=== PATIENT | female | born 1945 | race Caucasian/White ===

== ENCOUNTER 2021-02-25 10:47 | Outpatient (CLI) | payer MEDICARE, SELFPAY ==
--- NOTE | 2021-02-25 10:54 | MM_ITS ---
WS: [id number] BILATERAL DIGITAL SCREENING MAMMOGRAPHY WITH CAD CLINICAL INFORMATION: SCREENING HISTORY: Screening mammogram. No current complaints. COMPARISON: April 12, 2019 TECHNIQUE: Bilateral CC and MLO views. FINDINGS: The breasts are composed of heterogeneous fibroglandular density tissue, which can limit the detectio n of small underlying mass lesions. No suspicious mass, asymmetry, calcifications, or architectural d istortion. No evidence of malignancy. Punctate and vascular calcifications. MM/[place] [id number] IMPRESSION: BI-RADS: 2-Benign FOLLOW UP: 1 Year Follow-up Recommend return to annual screening mammography.
== END 2021-02-25 10:48 | disposition home or self-care (01) ==
LOC: RADSHAW 10:51
PROVIDERS: PCP Physician Assistant Medical; Visit Provider Nurse Practitioner Family
DX: Z12.31 Encounter for screening mammogram for malignant neoplasm of breast (principal)
CPT/HCPCS: 77067

== ENCOUNTER → 2023-05-19 09:41 | Outpatient (BNVA) | payer MEDICARE, SELFPAY | PROVIDERS: PCP Registered Nurse; Visit Provider Registered Nurse | DX: N39.0 Urinary tract infection, site not specified (principal) | CPT/HCPCS: 81000; 87077; 87086; 87184 ==

== ENCOUNTER → 2023-05-29 10:39 | Outpatient (BNVA) | payer MEDICARE, SELFPAY | PROVIDERS: PCP Registered Nurse; Visit Provider Registered Nurse | DX: N39.0 Urinary tract infection, site not specified (principal) | CPT/HCPCS: 81003; 87086 ==

== ENCOUNTER → 2023-06-17 15:08 | Outpatient (BNVA) | payer MEDICARE, SELFPAY | PROVIDERS: PCP Registered Nurse; Visit Provider Nurse Practitioner Family | DX: L57.0 Actinic keratosis (principal); L57.8 Other skin changes due to chronic exposure to nonionizing radiation; L81.4 Other melanin hyperpigmentation; D22.5 Melanocytic nevi of trunk; L85.3 Xerosis cutis; L82.1 Other seborrheic keratosis; Z85.828 Personal history of other malignant neoplasm of skin | CPT/HCPCS: 17004; 99213 ==

== ENCOUNTER → 2023-08-17 13:07 | Outpatient (BNVA) | payer MEDICARE, SELFPAY | PROVIDERS: PCP Registered Nurse; Visit Provider Dermatology | DX: D18.01 Hemangioma of skin and subcutaneous tissue (principal); L57.8 Other skin changes due to chronic exposure to nonionizing radiation; L82.1 Other seborrheic keratosis; L57.0 Actinic keratosis | CPT/HCPCS: 17000; 99213 ==

== ENCOUNTER → 2023-12-31 11:38 | Outpatient (BNVA) | payer MEDICARE, SELFPAY | PROVIDERS: PCP Registered Nurse; Visit Provider Registered Nurse | DX: J32.9 Chronic sinusitis, unspecified (principal) | CPT/HCPCS: 87400; 87426 ==

== ENCOUNTER 2024-02-01 11:02 | Outpatient (CLI) | payer MEDICARE, SELFPAY ==
--- NOTE | 2024-02-01 11:12 | XRR_ITS ---
PROCEDURE INFORMATION: Exam: XR Chest Exam date and time: 02/01/2024 11:25 AM Age: 78 years old Clinical indication: Patient HX: Cough/congestion x 2 weeks. Chest tightness. Took antibiotics and still is not better; Additional info: J18.9 - pneumonia, unspecified organism TECHNIQUE: Imaging protocol: Radiologic exam of the chest. Views: 2 views. COMPARISON: CT chest con [id number] 03/02/2018 10:10 AM FINDINGS: Lungs: Unremarkable. No consolidation. Pleural spaces: Unremarkable. No pleural effusion. No pneumothorax. Heart/Mediastinum: Unremarkable. No cardiomegaly. Bones/joints: A metallic pin is present in the left humeral head. XR/XR chest 2V* [id number] IMPRESSION: No acute findings. Metallic pin left humeral head.
[2024-02-01 14:00] LABS: Adenovirus Not Detected (NOT DETECT); Chlamydia Pneumoniae Not Detected (NOT DETECT); Coronavirus 229E,HKU1,NL63,OC4 Not Detected (NOT DETECT); Human Metapneumovirus Not Detected (NOT DETECT); Human Rhinovirus/Enterovirus Detected (NOT DETECT); Influenza A Not Detected (NOT DETECT); Influenza A H1 Not Detected (NOT DETECT); Influenza A H1-2009 Not Detected (NOT DETECT); Influenza A H3 Not Detected (NOT DETECT); Influenza B Not Detected (NOT DETECT); Mycoplasma Pneumoniae Not Detected (NOT DETECT); Parainfluenza Virus Type 1 Not Detected (NOT DETECT); Parainfluenza Virus Type 2 Not Detected (NOT DETECT); Parainfluenza Virus Type 3 Not Detected (NOT DETECT); Parainfluenza Virus Type 4 Not Detected (NOT DETECT); Respiratory Syncytial Virus A Not Detected (NOT DETECT); Respiratory Syncytial Virus B Not Detected (NOT DETECT); SARS-COV-2 Not Detected (NOT DETECT)
== END 2024-02-01 11:03 | disposition home or self-care (01) ==
LOC: RAD 11:04
PROVIDERS: PCP Registered Nurse; Visit Provider Registered Nurse
DX: J18.9 Pneumonia, unspecified organism (principal)
CPT/HCPCS: 71046; 80053; 85025; 87400; 87426; 87486; 87581; 87633

== ENCOUNTER → 2024-02-08 13:30 | Outpatient (BNVA) | payer MEDICARE, SELFPAY | PROVIDERS: PCP Registered Nurse; Visit Provider Nurse Practitioner Family | DX: L57.0 Actinic keratosis (principal); D18.01 Hemangioma of skin and subcutaneous tissue; L57.8 Other skin changes due to chronic exposure to nonionizing radiation; L82.1 Other seborrheic keratosis; R59.0 Localized enlarged lymph nodes; Z85.828 Personal history of other malignant neoplasm of skin; Z85.820 Personal history of malignant melanoma of skin | CPT/HCPCS: 17000; 99213 ==

== ENCOUNTER 2024-02-11 08:19 | Outpatient (CLI) | payer MEDICARE, SELFPAY ==
--- NOTE | 2024-02-11 08:22 | US_ITS ---
WS: [id number] INDICATION: Lump behind ear TECHNIQUE: Ultrasound area of concern FINDINGS: Ultrasound soft tissue area of concern posterior to the right ear. A few normal-appearing l ymph nodes in this area. No suspicious cystic or solid lesions. No other suspicious findings IMPRESSION: Normal exam
== END 2024-02-11 08:20 | disposition home or self-care (01) ==
LOC: RAD 08:20
PROVIDERS: PCP Registered Nurse; Visit Provider Nurse Practitioner Family
DX: Z08 Encounter for follow-up examination after completed treatment for malignant neoplasm (principal); Z85.820 Personal history of malignant melanoma of skin
CPT/HCPCS: 76536

== ENCOUNTER → 2024-04-25 13:09 | Outpatient (BNVA) | payer MEDICARE, SELFPAY | PROVIDERS: PCP Registered Nurse; Visit Provider Nurse Practitioner Family | DX: D48.5 Neoplasm of uncertain behavior of skin (principal); L57.0 Actinic keratosis; Z85.820 Personal history of malignant melanoma of skin; Z85.828 Personal history of other malignant neoplasm of skin; R59.0 Localized enlarged lymph nodes | CPT/HCPCS: 11102; 17000; 99213 ==

== ENCOUNTER 2024-04-27 16:51 | Outpatient (CLI) | payer MEDICARE, SELFPAY ==
--- NOTE | 2024-04-27 16:59 | CT_ITS ---
WS: [id number] CT NECK WITHOUT CONTRAST HISTORY: SCALP AND RIGHT INFERIOR POSTAURICULAR SKIN TECHNIQUE: Contiguous 2 mm axial images are performed through the neck with intravenous contrast. Sag ittal and coronal reformats are also submitted. All CT scans at [facility] use at least one o f these dose optimization techniques: automated exposure control; mA and/or kV adjustment per patient size (includes targeted exams where dose is matched to clinical indication); or iterative reconstruc tion. CONTRAST: CONTRAST: None DLP: 125.93 mGy.cm COMPARISON: None available. Contrast performed without IV contrast which decreases sensitivity and specificity. Nasopharynx, oropharynx, hypopharynx and larynx are unremarkable. No soft tissue masses. Torus tubarius and fossa of Rosenmuller and parapharyngeal fat are normal. Small bilateral cervical chain lymph nodes are identified. These lymph nodes are subcentimeter in nor mal size. No adenopathy. No necrotic lymph nodes. No adenopathy is identified posterior to the RIGHT ear. Unenhanced imaging of the thyroid, submandibular and parotid glands is negative. Increased soft tissue surrounding the odontoid process with sclerosis. Possible erosions. Correlate f or possible rheumatoid arthritis. Facet joint arthritis bilaterally throughout the cervical spine. Visualized portions of the skull base demonstrate no abnormalities. Orbits and globes are within norm al limits. No soft tissue masses. Visualized paranasal sinuses and mastoid air cells are normal. Lung apices and negative for mass. Benign granulomata. Moderate atherosclerotic plaque in the visuali zed thoracic aortic arch. CT/CT neck wo con [id number] IMPRESSION: 1. Lack of IV contrast limits specificity and sensitivity of this examination. 2. No cervical chain lymphadenopathy or mass identified. 3. No mass posterior to the right ear. 4. Increased soft tissue with sclerosis and mild erosions involving the odonto id. This can be seen with rheumatoid arthritis.
--- NOTE | 2024-04-27 16:59 | CT_ITS ---
WS: [id number] CT HEAD NONCONTRAST HISTORY: SCALP AND RIGHT INFERIOR POSTAURICULAR SKIN TECHNIQUE: Contiguous axial imaging performed through the brain in 3.0 mm imaging. Bone and soft tiss ue windows. Sagittal and coronal reformats reviewed. All CT scans at [facility] use at least one of these dose optimization techniques: automated exposure control; mA and/or kV adjustment per pa tient size (includes targeted exams where dose is matched to clinical indication); or iterative recon struction. DLP: 894.28 mGy.cm COMPARISON: None available. No acute intracranial hemorrhage, midline shift or mass effect. Mild atrophy and small vessel ischemic disease. No prior infarct. Perivascular space along the inferi or LEFT basal ganglia. Mild cerebellar atrophy. There is no edema or sulcal effacement. Ventricles: Normal size with no hydrocephalus. Paranasal sinuses: As visualized are clear. Mastoid air cells: Well pneumatized. Calvarium and scalp: Skull is intact with no soft tissue edema or swelling. No soft tissue mass identified posterior to the RIGHT ear. No bone destruction. CT/CT head wo con* [id number] IMPRESSION: 1. No scalp mass identified posterior to the right ear on this examination. 2. Mild cerebral and cerebellar atrophy with mild small vessel ischemic diseas e. 3. No intracranial hemorrhage or edema.
== END 2024-04-27 16:52 | disposition home or self-care (01) ==
LOC: RAD 16:55
PROVIDERS: PCP Registered Nurse; Visit Provider Nurse Practitioner Family
DX: R59.0 Localized enlarged lymph nodes (principal); M15.4 Erosive (osteo)arthritis
CPT/HCPCS: 70450; 70490

== ENCOUNTER → 2024-05-18 09:55 | Outpatient (BNVA) | payer MEDICARE, SELFPAY | PROVIDERS: PCP Registered Nurse; Visit Provider Registered Nurse | DX: R06.02 Shortness of breath (principal) | CPT/HCPCS: 80048; 83880; 85025 ==

== ENCOUNTER → 2024-06-06 09:38 | Outpatient (BNVA) | payer MEDICARE, SELFPAY | PROVIDERS: PCP Registered Nurse; Visit Provider Dermatology | DX: C44.41 Basal cell carcinoma of skin of scalp and neck (principal); L57.0 Actinic keratosis; R59.0 Localized enlarged lymph nodes | CPT/HCPCS: 13132; 17000; 17311; 99213 ==

== ENCOUNTER 2024-06-30 15:26 | Outpatient (RCR) | payer MEDICARE, SELFPAY | END 2024-07-23 23:59 | disposition home or self-care (01) | LOC: SPT 15:26 | PROVIDERS: PCP Registered Nurse; Visit Provider Registered Nurse | DX: H81.13 Benign paroxysmal vertigo, bilateral (principal) | CPT/HCPCS: 95992; 97161 ==

== ENCOUNTER → 2024-10-07 10:19 | Outpatient (BNVA) | payer MEDICARE, SELFPAY | PROVIDERS: PCP Registered Nurse; Visit Provider Nurse Practitioner Family | DX: S50.911A Unspecified superficial injury of right forearm, initial encounter (principal); X58.XXXA Exposure to other specified factors, initial encounter; D18.01 Hemangioma of skin and subcutaneous tissue; L82.1 Other seborrheic keratosis; L57.8 Other skin changes due to chronic exposure to nonionizing radiation; Z85.820 Personal history of malignant melanoma of skin; Z85.828 Personal history of other malignant neoplasm of skin; L57.0 Actinic keratosis | CPT/HCPCS: 17000; 99214 ==

== ENCOUNTER → 2024-11-03 10:17 | Outpatient (BNVA) | payer MEDICARE, SELFPAY | PROVIDERS: PCP Registered Nurse; Visit Provider Registered Nurse | DX: K59.00 Constipation, unspecified (principal) | CPT/HCPCS: 81000; 85025 ==

== ENCOUNTER → 2024-11-21 11:25 | Outpatient (BNVA) | payer MEDICARE, SELFPAY | PROVIDERS: PCP Registered Nurse; Referring Provider Registered Nurse; Visit Provider Student in an Organized Health Care Education/Training Program | DX: R19.4 Change in bowel habit (principal); R03.0 Elevated blood-pressure reading, without diagnosis of hypertension | CPT/HCPCS: 99204 ==

== ENCOUNTER 2024-11-29 08:59 | Day surgery (SDC) | payer MEDICARE, SELFPAY ==
[2024-11-29 09:19] VITALS: BP 143/97; PULSE 88; RESP 18; TEMP 36.8; O2SAT 97; BMI 28.1
[2024-11-29] MEDS: sodium chloride 0.9% 500 ML 15 ML IV (09:36)
--- NOTE | 2024-11-29 10:50 | W.PM.OPSUD ---
Surgery/Procedure H&P Update DATE OF PROCEDURE: November 29, 2024 DATE H&P PERFORMED: 11/22/24 H&P UPDATE INFORMATION: I have reviewed H&P completed within last 30 days, I have examined patient prior to procedure and No changes to prior documentation PLANNED PROCEDURE: Operation Date: 11/29/24 10:00 Proposed Procedures p EGD 45500, [id number], G0105, R19.4, R12(Not Applicable) - David Munoz MD s Colonoscopy(Not Applicable) - David Munoz MD
[2024-11-29 11:17] VITALS: BP 140/75; PULSE 86; RESP 14; TEMP 36.7; O2SAT 99
[2024-11-29 11:37] VITALS: BP 129/77; PULSE 74; RESP 16; O2SAT 93
--- NOTE | 2024-11-29 12:37 | P.ANESASSM_ITS ---
Pre-Anesthetic Assessment Height/Weight: Height 1.52 m Weight 65.317 kg Temp Pulse Resp BP Pulse Ox O2 Del Method 98.1 F 74 16 129/77 93 Room Air 11/29/24 11:17 11/29/24 11:37 11/29/24 11:37 11/29/24 11:37 11/29/24 11:37 11/29/24 11:37 Operation Date: 11/29/24 10:00 Proposed Procedures p EGD 43142, 72706, G0105, R19.4, R12(Not Applicable) - David Munoz MD s Colonoscopy(Not Applicable) - David Munoz MD Familial anesthetic complications: none Was Beta Daren taken within 24 hours: N/A Was Clonidine taken within 24 hours: N/A Last intake: Intake Last Liquid Date 11/28/24 Last Liquid Time 23:00 Last Solid Date 11/26/24 Last Solid Time 17:00 Social No alcohol and No tobacco Exam alert, oriented x 3 and regular rate & rhythm Airway Submandibular: within normal limits Cervical ROM: within normal limits Mallampati: Class II Dentition: false (upper) CV/HEM Hypertension GI Gastroesophageal Reflux Disease Anesthetic Plan ASA status: 3 Anesthesia: MAC Medications/Allergies Home Medications Medication Instructions Recorded Confirmed Last Taken Type amlodipine 10 mg tablet 10 mg PO DAILY 11/24/24 11/29/24 11/28/24 History losartan 25 mg tablet 25 mg PO DAILY 11/24/24 11/29/24 11/28/24 History vitamins A,C,S-ecov-wlebio 4,296 1 cap PO BID 11/24/24 11/29/24 11/28/24 History mcg-226 mg-90 mg capsule (PreserVision AREDS) pantoprazole 40 mg tablet,delayed 40 mg PO DAILY 6 weeks #42 tabs 11/29/24 Unknown Rx release (Protonix) Allergies Allergy/AdvReac Type Severity Reaction Status Date / Time aspirin Allergy stomach Verified 11/29/24 09:17 cramps meperidine [From Demerol] Allergy unk Verified 11/29/24 09:17 penicillin G Allergy very sick Verified 11/29/24 09:17 Sulfa (Sulfonamide Allergy very sick Verified 11/29/24 09:17 Antibiotics) [facility] Anesthesia Medical History (Updated 11/06/24 @ 20:09 by AMBER Lockwood) Squamous cell carcinoma in situ (SCCIS) History of nonmelanoma skin cancer History of melanoma HTN (hypertension) Hyperlipidemia Cholecystitis Surgical History (Updated 11/21/24 @ 12:09 by MARNIE Charles) History of hysterectomy History of shoulder surgery History of cataract surgery Family History (Updated 11/21/24 @ 12:14 by MARNIE Charles) Mother Congestive heart failure (CHF) Hypertension Sister Congestive heart failure (CHF) Breast cancer Father Cancer throat Grandmother Stroke Denies family history of Diabetes Lung disease Social History Smoking and tobacco/nicotine status: never used tobacco/nicotine Alcohol intake: never Substance/Drug Use: never Adopted: No Caregiver/support person: No Lives independently: No Household members: spouse Marital status: service: No Current occupational status: retired Sexually active: Yes Do you think of yourself as: Straight/Heterosexual Current gender identity: Female Data Anesthesia Cardiac Studies: Echocardiogram 06/03/24
--- NOTE | 2024-11-29 13:53 | ANE.PACU2 ---
Inpatient post-anesthesia follow up: Airway intact: Yes Vital signs: Temperature 98.1 F Pulse Rate 74 Respiratory Rate 16 Blood Pressure 129/77 Pulse Oximetry 93 Oxygen Delivery Me thod Room Air Oxygen Flow Rate Fraction of Inspir ed Oxygen Hydration adequate: Yes Nausea and vomiting: No Pain level: 2 Mental status: Baseline
== END 2024-11-29 11:55 | disposition home or self-care (01) ==
PROVIDERS: PCP Registered Nurse; Visit Provider Student in an Organized Health Care Education/Training Program
PROC: 0DJ08ZZ Inspection of Upper Intestinal Tract, Via Natural or Artificial Opening Endoscopic (ICD-10-PCS; principal; 2024-11-29 10:00)
PROC: 0DJD8ZZ Inspection of Lower Intestinal Tract, Via Natural or Artificial Opening Endoscopic (ICD-10-PCS; CPT 45378; 2024-11-29 10:00)
DX: R19.4 Change in bowel habit (principal); R12 Heartburn; K29.50 Unspecified chronic gastritis without bleeding; I10 Essential (primary) hypertension; K21.9 Gastro-esophageal reflux disease without esophagitis; E78.5 Hyperlipidemia, unspecified; K44.9 Diaphragmatic hernia without obstruction or gangrene; K29.70 Gastritis, unspecified, without bleeding
CPT/HCPCS: 43239; 45378; 88305; 88342; J2704; J7040

== ENCOUNTER → 2024-12-12 10:48 | Outpatient (BNVA) | payer MEDICARE, SELFPAY | PROVIDERS: PCP Registered Nurse; Visit Provider Student in an Organized Health Care Education/Training Program | DX: Z09 Encounter for follow-up examination after completed treatment for conditions other than malignant neoplasm (principal) | CPT/HCPCS: 99213 ==

== ENCOUNTER → 2025-05-04 10:07 | Outpatient (BNVA) | payer MEDICARE, SELFPAY | PROVIDERS: PCP Registered Nurse; Visit Provider Nurse Practitioner Family | DX: D18.01 Hemangioma of skin and subcutaneous tissue (principal); L82.1 Other seborrheic keratosis; L57.8 Other skin changes due to chronic exposure to nonionizing radiation; Z85.820 Personal history of malignant melanoma of skin; Z08 Encounter for follow-up examination after completed treatment for malignant neoplasm; Z85.828 Personal history of other malignant neoplasm of skin; L56.8 Other specified acute skin changes due to ultraviolet radiation; L29.89 Other pruritus; L53.8 Other specified erythematous conditions; Z78.9 Other specified health status; D48.5 Neoplasm of uncertain behavior of skin; L57.0 Actinic keratosis | CPT/HCPCS: 11102; 17000; 17110; 99213 ==

== ENCOUNTER → 2025-05-30 09:53 | Outpatient (BNVA) | payer MEDICARE, SELFPAY | PROVIDERS: PCP Registered Nurse; Visit Provider Dermatology | DX: C44.311 Basal cell carcinoma of skin of nose (principal) | CPT/HCPCS: 17281 ==

== ENCOUNTER → 2025-06-19 11:17 | Outpatient (BNVA) | payer MEDICARE, SELFPAY | PROVIDERS: PCP Registered Nurse; Visit Provider Dermatology | DX: D48.5 Neoplasm of uncertain behavior of skin (principal); Z85.820 Personal history of malignant melanoma of skin; Z08 Encounter for follow-up examination after completed treatment for malignant neoplasm; Z85.828 Personal history of other malignant neoplasm of skin | CPT/HCPCS: 99214 ==

== ENCOUNTER → 2025-06-28 15:48 | Outpatient (BNVA) | payer MEDICARE, SELFPAY | PROVIDERS: PCP Registered Nurse; Visit Provider Dermatology | DX: Z85.820 Personal history of malignant melanoma of skin (principal); Z08 Encounter for follow-up examination after completed treatment for malignant neoplasm; Z85.828 Personal history of other malignant neoplasm of skin; D48.5 Neoplasm of uncertain behavior of skin | CPT/HCPCS: 11102; 99214 ==

== ENCOUNTER → 2025-07-07 10:18 | Outpatient (BNVA) | payer MEDICARE, SELFPAY | PROVIDERS: PCP Registered Nurse; Visit Provider Dermatology | DX: L02.91 Cutaneous abscess, unspecified (principal); Z85.820 Personal history of malignant melanoma of skin; Z08 Encounter for follow-up examination after completed treatment for malignant neoplasm; Z85.828 Personal history of other malignant neoplasm of skin | CPT/HCPCS: 99214 ==

== ENCOUNTER → 2025-08-18 09:56 | Outpatient (BNVA) | payer MEDICARE, SELFPAY | PROVIDERS: PCP Registered Nurse; Visit Provider Dermatology | DX: Z85.820 Personal history of malignant melanoma of skin (principal); Z08 Encounter for follow-up examination after completed treatment for malignant neoplasm; Z85.828 Personal history of other malignant neoplasm of skin; D48.5 Neoplasm of uncertain behavior of skin; L57.0 Actinic keratosis | CPT/HCPCS: 11102; 17000; 99213 ==